=== PATIENT | male | born 1940 | race Caucasian/White ===

== ENCOUNTER 2017-09-10 12:46 | Inpatient (IN) ==
[2017-09-10] MEDS ORDERED: Morphine Sulfate Inj 8 MG/ML Vial IV.PUSH ONE (13:13)
--- NOTE | 2017-09-10 13:23 | ED ---
HPI General Chief Complaint: Extremity Injury, Lower Stated Complaint: Fall Time Seen by Provider: 09/10/17 13:03 Source: patient and family Mode of arrival: wheelchair Limitations: no limitations History of Present Illness HPI Narrative: 77-year-old male the presents to the ED for evaluation of left leg injury. Patient reports that about an hour before coming he had a fall into his left leg and he has not been able to put any weight on his left leg since. He had a previous fracture on this leg about the beginning of this year and had surgery by Dr. Brito. He is concerned he broke it again. He did suffer an abrasion to his left elbow as well as to his left knee. He states that he is up-to-date with his tetanus. Per patient his pain is 8 out of 10 especially with any movement of the left leg. All the pain appears to be around the area of the femur. Denies any numbness, drooling, weakness. No chest pain or shortness of breath. No head injury. He does take Pradaxa. He denies any other medical complaints. Patient is was a trip and fall. He denies any syncopal episode. No neck or back pain. Related Data Home Medications Medication Instructions Recorded Confirmed dabigatran etexilate [Pradaxa] mg PO DAILY 09/10/17 dofetilide [Tikosyn] mcg PO 09/10/17 insulin glargine [Lantus U-100 48 unit SUB-Q HS 09/10/17 09/10/17 Insulin] levothyroxine mcg PO DAILY 09/10/17 metformin 500 mg PO BID 09/10/17 09/10/17 Allergies Allergy/AdvReac Type Severity Reaction Status Date / Time bismuth subsalicylate Allergy Severe NAUSEA AND Verified 09/10/17 13:20 VOMITING latex Allergy Severe BURNING Verified 09/10/17 13:20 RASH PMFSH History History Provided By: Patient Medical History Medical History A-fib (Acute) Diabetes (Acute) Kidney stones (Acute) Surgical History Surgical History History of tonsillectomy (Acute) Hx of appendectomy (Acute) Hx of cholecystectomy (Acute) Social History Social History Substance History: No History of Abuse Smoking Status: Former smoker How Often Do You Have a Drink Containing Alcohol: Never Recent Travel in [facility] within the Last 8 Weeks: No Recent Out of Country Travel within the Last 8 Weeks: No Exam Narrative Exam Narrative: GENERAL: Well-appearing SKIN: Focused skin assessment warm/dry. Patient does have a hematoma to the pelvis area as well as his buttocks. HEAD: Atraumatic. Normocephalic. EYES: Pupils equal and round. No scleral icterus. No injection or drainage. ENT: No nasal bleeding or discharge. Mucous membranes pink and moist. NECK: Trachea midline. No JVD. CARDIOVASCULAR: Regular rate and rhythm. No murmur appreciated. RESPIRATORY: No accessory muscle use. Clear to auscultation. Breath sounds equal bilaterally. GASTROINTESTINAL: Abdomen soft, non-tender, nondistended. Hepatic and splenic margins not palpable. MUSCULOSKELETAL: No obvious deformities. No clubbing. No cyanosis. No edema. Full range of motion of the upper and lower extremities bilaterally with exception of the left leg. Any movement of the left leg of the area of the hip causes significant discomfort. No obvious deformity noted however. No obvious bruising noted. 2+ pulses bilaterally. Sensation intact bilaterally. NEUROLOGICAL: Awake and alert. No obvious cranial nerve deficits. Motor grossly within normal limits. Normal speech. PSYCHIATRIC: Appropriate mood and affect; insight and judgment normal. Course Initial Documented Vital Signs Temperature 97.4 F L 09/10/17 12:54 Pulse Rate 17 L 09/10/17 12:54 Respiratory Rate 17 09/10/17 12:54 Blood Pressure 95/45 L 09/10/17 12:54 Pulse Oximetry 94 L 09/10/17 12:54 Last Documented Vital Signs Temperature 97.4 F L 09/10/17 12:54 Pulse Rate 83 09/10/17 15:37 Respiratory Rate 14 09/10/17 15:37 Blood Pressure 147/71 H 09/10/17 15:37 Pulse Oximetry 97 09/10/17 15:37 Medical Decision Making BRE Attestation BRE supervised visit: Yes Attestation: I, Dr. Reyes, have reviewed the advance practice practitioner's documentation and am in agreement, met with the patient face to face, made the diagnosis, and the medical decision making was done by me. *My assessment and Findings: Patient seen and examined by me in addition to Kimo Gonzalez PA-C, 77-year-old male who is on anticoagulation for history of atrial fibrillation presents emergency department for evaluation of left hip left elbow pain after a slip and fall. Adamantly denies any shortness of breath prececal symptoms or chest pain. He states he thinks he also hit his head. No neck pain. My physical exam is fairly reassuring, he does have some tenderness with internal/external rotation of his left hip otherwise an abrasion of his left elbow which does not require any repair. Awaiting x-rays and CT of the head. MDM Narrative Medical decision making narrative: 77-year-old male the presents to the ED for evaluation of fall. Patient was properly examined and was found to have signs and symptoms consistent with appears to be fall. Concern for fracture. Imaging ordered. Meds ordered. Labs and imaging show what appears to be possible fracture. CT recommended. CT was done of the femur and did show what appears to be acetabular fracture with what appears to be hematoma pressing on the bladder. My attending Dr. Reyes himself evaluated the patient and recommends CT with contrast to see whether there is active bleeding. CT with contrast was negative for this. Patient was reassured. I spoke with Cordell WEBER for Dr. Judd who states that this is nonoperative and patient could be admitted if needed for physical therapy and rehab to medicine. At this time case was discussed with MELY Smith who agrees to admission to her service. Patient and family agree with plan. Differential Diagnosis Differential Diagnosis: Fracture versus sprain versus strain versus fall Medical Records Medical records reviewed: Yes I reviewed the patient's medical records. Lab Data Lab results reviewed: Yes I reviewed the patient's lab results. Lab results narrative: Coags slightly within normal limits Result diagrams: 09/10/17 13:30 09/10/17 13:30 Lab Results 09/10/17 09/10/17 09/10/17 Range/Units 13:30 13:30 16:25 WBC 13.6 H (4.0-11.0) th/mm3 RBC 5.55 (4.50-5.90) mil/mm3 Hgb 15.3 (13.0-17.0) gm/dL Hct 47.2 (39.0-51.0) % MCV 85.0 (80.0-100.0) fL MCH 27.5 (27.0-34.0) pg MCHC 32.3 (32.0-36.0) % RDW 15.8 (11.6-17.2) % Plt Count 266 (150-450) th/mm3 MPV 9.2 (7.0-11.0) fL Neut % (Auto) 76.5 H (16.0-70.0) % Lymph % (Auto) 17.2 (9.0-44.0) % Irion % (Auto) 4.6 (0.0-8.0) % Eos % (Auto) 1.5 (0.0-4.0) % Baso % (Auto) 0.2 (0.0-2.0) % Neut # (Auto) 10.4 H (1.8-7.7) th/mm3 Lymph # (Auto) 2.3 (1.0-4.8) th/mm3 Irion # (Auto) 0.6 (0.0-0.9) th/mm3 Eos # (Auto) 0.2 (0.0-0.4) th/mm3 Baso # (Auto) 0.0 (0.0-0.2) th/mm3 WBC Differential . Differential Comment Auto diff final PT 15.7 H (9.8-11.6) sec INR 1.6 Ratio APTT 39.4 H (24.3-30.1) sec Sodium 141 (136-145) meq/L Potassium 3.6 (3.5-5.1) meq/L Chloride 106 (98-107) meq/L Carbon Dioxide 23.0 (21.0-32.0) meq/L Anion Gap 12 (5-15) meq/L BUN 20 H (7-18) mg/dL Creatinine 1.30 (0.60-1.30) mg/dL Estimated GFR 54 L (>89) mL/min Random Glucose 209 H (74-106) mg/dL Calcium 9.0 (8.5-10.1) mg/dL Blood Type Blood Type Recheck Antibody Screen 09/10/17 Range/Units 16:25 WBC (4.0-11.0) th/mm3 RBC (4.50-5.90) mil/mm3 Hgb (13.0-17.0) gm/dL Hct (39.0-51.0) % MCV (80.0-100.0) fL MCH (27.0-34.0) pg MCHC (32.0-36.0) % RDW (11.6-17.2) % Plt Count (150-450) th/mm3 MPV (7.0-11.0) fL Neut % (Auto) (16.0-70.0) % Lymph % (Auto) (9.0-44.0) % Irion % (Auto) (0.0-8.0) % Eos % (Auto) (0.0-4.0) % Baso % (Auto) (0.0-2.0) % Neut # (Auto) (1.8-7.7) th/mm3 Lymph # (Auto) (1.0-4.8) th/mm3 Irion # (Auto) (0.0-0.9) th/mm3 Eos # (Auto) (0.0-0.4) th/mm3 Baso # (Auto) (0.0-0.2) th/mm3 WBC Differential Differential Comment PT (9.8-11.6) sec INR Ratio APTT (24.3-30.1) sec Sodium (136-145) meq/L Potassium (3.5-5.1) meq/L Chloride (98-107) meq/L Carbon Dioxide (21.0-32.0) meq/L Anion Gap (5-15) meq/L BUN (7-18) mg/dL Creatinine (0.60-1.30) mg/dL Estimated GFR (>89) mL/min Random Glucose (74-106) mg/dL Calcium (8.5-10.1) mg/dL Blood Type O Positive Blood Type Recheck Required Antibody Screen Negative Imaging Data Attestation: I personally reviewed and interpreted this imaging study as follows : Radiologist's impression: Femur X-Ray 09/10/17 00:00 CONCLUSION: 1. Medullary romario and compression screws traversing the left femoral neck all remain radiographically intact. 2. Cannot exclude an acute fracture through the previously fixated femoral neck with linear lucency medially and a questionable cortical step-off versus bony eburnation laterally. More advanced imaging may be limited due to the regional hardware but could attempt CT scan with metal artifact reducing algorithm/protocol for further evaluation if clinically warranted Pelvis X-Ray 09/10/17 13:15 CONCLUSION: No definite acute fracture. Head CT 09/10/17 13:32 CONCLUSION: 1. No acute intracranial abnormality is identified and no skull fracture is seen. 2. Suspected abnormal appearance to the skull with heterogeneous density and multiple small areas of lucency. This is a nonspecific finding but can be seen in patients with multiple myeloma. Suggest correlating with the clinical history to determine if this is a known diagnosis and if not consider additional workup. Femur CT 09/10/17 15:06 CONCLUSION: 1. Left acetabular fracture with significant amount of dissecting extraperitoneal hematoma on the left side and displacing the bladder towards the right. There is no evidence for free fluid intraperitoneally. 2. Old intertrochanteric fracture and is one area involving the inner margins near the lesser trochanter probably also related to old fracture, however an acute fracture at this site is difficult to exclude, however alignment is anatomical and surgical hardware appears intact. Pelvis CT 09/10/17 16:11 CONCLUSION: 1. Left pelvic hematoma related to acetabular fracture without active extravasation. Discharge Plan Discharge Disposition Patient Disposition: 30 Still Patient Discharge Details Diagnosis: Acetabular fracture, Hematoma Physicians Team ED Provider: Reuben Reyes ED Midlevel Provider: Kimo Gonzalez Primary Care Provider: Bakari Watson Attending Provider: Nazia Kiser Discharge Interventions Interventions: Vital Signs Last Done: 09/10/17 15:37 Status ED Status: Admitted Patient
[2017-09-10 13:49] LABS: Baso % (Auto) 0.2 % (0.0-2.0); Eos # (Auto) 0.2 th/mm3 (0.0-0.4); Eos % (Auto) 1.5 % (0.0-4.0); Hematocrit 47.2 % (39.0-51.0); Hemoglobin 15.3 gm/dL (13.0-17.0); Lymph # (Auto) 2.3 th/mm3 (1.0-4.8); Lymph % (Auto) 17.2 % (9.0-44.0); Mean Corpuscular HGB Conc 32.3 % (32.0-36.0); Mean Corpuscular Hemoglobin 27.5 pg (27.0-34.0); Mean Platelet Volume 9.2 fL (7.0-11.0); Mono # (Auto) 0.6 th/mm3 (0.0-0.9); Mono % (Auto) 4.6 % (0.0-8.0); Neut # (Auto) 10.4 th/mm3 (1.8-7.7); Neut % (Auto) 76.5 % (16.0-70.0); Platelet Count 266 th/mm3 (150-450); Red Blood Count 5.55 mil/mm3 (4.50-5.90); Red Cell Distribution Width 15.8 % (11.6-17.2); White Blood Count 13.6 th/mm3 (4.0-11.0)
[2017-09-10 14:08] LABS: Potassium 3.6 meq/L (3.5-5.1)
--- NOTE | 2017-09-10 14:48 | XR ---
EXAM DATE: 09/10/2017 2:42 PM EDT AGE/SEX: 77 years / Male INDICATIONS: Left hip pain after falling today. CLINICAL DATA: This is the patient's initial encounter. Patient reports that signs and symptoms have been present for 1 day and indicates a pain score of 10/10. MEDICAL/SURGICAL HISTORY: Diabetes mellitus type II. . Bilateral femur rods. COMPARISON: No prior exams available for comparison. FINDINGS: No definite fractures, or dislocations are identified. No definite lytic or sclerotic les ion is seen. Intramedullary rods are present traversing proximal femur with screws traversing bilater al femoral neck and there is evidence for old fractures and hypertrophic changes bilaterally. There i s moderate amount of stool in the colon. CONCLUSION: No definite acute fracture. Electronically signed by: Patti Ortiz MD 09/10/2017 2:47 PM EDT
[2017-09-10] MEDS ORDERED: Morphine Inj 4 MG/ML Vial IV.PUSH ONE (14:49)
--- NOTE | 2017-09-10 15:04 | XR ---
EXAM DATE: 09/10/2017 2:51 PM EDT AGE/SEX: 77 years / Male INDICATIONS: Left hip pain after falling today. CLINICAL DATA: This is the patient's initial encounter. Patient reports that signs and symptoms have been present for 1 day and indicates a pain score of 10/10. MEDICAL/SURGICAL HISTORY: Diabetes mellitus type II. . Bilateral femur rods. COMPARISON: [facility] [place], PELVIS AP 1V, 09/10/2017. . FINDINGS: Multiple compression screws and intramedullary romario secured a presumed femoral neck fracture. However, there is some cortical step off and lucency in the proximal femur and therefore, I cannot exclude a acute fracture post fall. Hardware all remains intact. Femoral acetabular articulation is preserved. CONCLUSION: 1. Medullary romario and compression screws traversing the left femoral neck all remain radiographically intact. 2. Cannot exclude an acute fracture through the previously fixated femoral neck with linear lucency medially and a questionable cortical step-off versus bony eburnation laterally. More advanced imaging may be limited due to the regional hardware but could attempt CT scan with metal artifact reducing a lgorithm/protocol for further evaluation if clinically warranted Electronically signed by: Robi Wakefield MD 09/10/2017 3:02 PM EDT
--- NOTE | 2017-09-10 15:43 | CT ---
EXAM DATE: 09/10/2017 3:13 PM EDT AGE/SEX: 77 years / Male INDICATIONS: Tripped and fell. CLINICAL DATA: This is the patient's initial encounter. Patient reports that signs and symptoms have been present for 1 day and indicates a pain score of 3/10. MEDICAL/SURGICAL HISTORY: Diabetes. Renal calculi. AFIB Tonsillectomy. RADIATION DOSE: 44.82 CTDI (mGy) COMPARISON: No prior exams available for comparison. TECHNIQUE: CT of the head without contrast. Using automated exposure control and adjustment of the mA and/or kV according to patient size, radiation dose was kept as low as reasonably achievable to ob tain optimal diagnostic quality images. DICOM format image data is available electronically for revi ew and comparison. FINDINGS: Cerebrum: There is mild generalized atrophy and ventricles are normal given the degree of atrophy. M ild periventricular white matter change is present. No midline shift, mass lesion, hemorrhage or acu te infarction. No extraaxial fluid collections are seen. Posterior Fossa: The cerebellum and brainstem demonstrate no acute abnormality. The 4th ventricle is midline. The cerebellopontine angle is within normal limits. Extracranial: The visualized sinuses are clear. Skull: There is a very heterogeneous appearance to the calvarium with multiple lucent areas. CONCLUSION: 1. No acute intracranial abnormality is identified and no skull fracture is seen. 2. Suspected abnormal appearance to the skull with heterogeneous density and multiple small areas of lucency. This is a nonspecific finding but can be seen in patients with multiple myeloma. Suggest co rrelating with the clinical history to determine if this is a known diagnosis and if not consider add itional workup. Electronically signed by: Andres Cheema MD 09/10/2017 3:42 PM EDT
--- NOTE | 2017-09-10 15:54 | CT ---
EXAM DATE: 09/10/2017 3:41 PM EDT AGE/SEX: 77 years / Male INDICATIONS: Fall today. CLINICAL DATA: This is the patient's initial encounter. Patient reports that signs and symptoms have been present for 1 day and indicates a pain score of 10/10. MEDICAL/SURGICAL HISTORY: None. . Bilateral femur rods. RADIATION DOSE: 25.56 CTDI (mGy) COMPARISON: No prior exams available for comparison. TECHNIQUE: Multiple contiguous axial images were acquired using a multirow detector CT scanner witho ut contrast. Multiplanar reconstruction was performed in the sagittal and coronal planes. Using auto mated exposure control and adjustment of the mA and/or kV according to patient size, radiation dose w as kept as low as reasonably achievable to obtain optimal diagnostic quality images. DICOM format im age data is available electronically for review and comparison. FINDINGS: There is a fracture of the acetabulum on the left side without any significant angulation or displace ment extends from the acetabular roof to involve the anterior column acetabulum. Intramedullary romario i s present traversing the femur with proximal and distal fixation screws and there is evidence for old intertrochanteric fracture. 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 There is hematoma in the dissecting extraperitoneally maximal AP diameter of 7.1 cm extensive to the level of the bladder and displaces the bladder towards the right side. CONCLUSION: 1. Left acetabular fracture with significant amount of dissecting extraperitoneal hematoma on the le ft side and displacing the bladder towards the right. There is no evidence for free fluid intraperito neally. 2. Old intertrochanteric fracture and is one area involving the inner margins near the lesser trocha nter probably also related to old fracture, however an acute fracture at this site is difficult to ex clude, however alignment is anatomical and surgical hardware appears intact. Electronically signed by: Patti Ortiz MD 09/10/2017 3:53 PM EDT
[2017-09-10] MEDS ORDERED: HYDROmorphone PF Inj 1 MG/ML Ampul IV.PUSH ONE (16:08)
[2017-09-10] MEDS ORDERED: HYDROmorphone PF Inj 2 MG/ML Vial ONE (16:24)
[2017-09-10 17:05] LABS: Activated Partial Thrombo Time 39.4 sec (24.3-30.1); INR 1.6 Ratio; Prothrombin Time 15.7 sec (9.8-11.6)
--- NOTE | 2017-09-10 17:30 | CT ---
EXAM DATE: 09/10/2017 5:22 PM EDT AGE/SEX: 77 years / Male INDICATIONS: Trauma, abnormal prior CT images. CLINICAL DATA: This is the patient's initial encounter. Patient reports that signs and symptoms have been present for 1 day and indicates a pain score of 10/10. MEDICAL/SURGICAL HISTORY: Cardiovascular disease. Renal calculi. . bilateral lower extremity surge ry RADIATION DOSE: 20.18 CTDI (mGy) ; Patient body habitus COMPARISON: [facility] – [place], CT FEMUR LEFT W/O CONTRAST, 09/10/2017. . TECHNIQUE: Multiple contiguous helical axial images were obtained through pelvis following bolus inf usion of 90 ml Omnipaque 350 (iohexol) nonionic water-soluble contrast as a single exam dose. Imag es were obtained using multiple row detector helical technique. . Using automated exposure control an d adjustment of the mA and/or kV according to patient size, radiation dose was kept as low as reasona louise achievable to obtain optimal diagnostic quality images. DICOM format image data is available melany ctronically for review and comparison. FINDINGS: Fractures of the left acetabulum are seen with postsurgical changes in the left hip discussed on the patient's left femur radiograph. There is a hematoma in the left pelvic wall appears to be extraperit [place] and there is no evidence for extravasation at this time. There is no evidence for free intraper itoneal fluid and there is slight mass effect on the bladder. CONCLUSION: 1. Left pelvic hematoma related to acetabular fracture without active extravasation. Electronically signed by: Patti Ortiz MD 09/10/2017 5:28 PM EDT
[2017-09-10] MEDS ORDERED: Bisacodyl 10 MG Supp RECTAL PRN (18:31)
[2017-09-10] MEDS ORDERED: Acetaminophen 325 MG Tablet PO PRN (18:31)
[2017-09-10] MEDS ORDERED: Naloxone Inj 0.4 MG/ML Vial IV.PUSH PRN (18:37)
[2017-09-10] MEDS ORDERED: Dextrose 50% in Water 50 ML Vial IV.PUSH PRN (18:50)
--- NOTE | 2017-09-10 18:53 | P.HP ---
History of Present Illness Service: [facility] Primary Care Physician: Bakari Watson MD Chief Complaint: Left Hip Pain History of Present Illness: Patient is a 77-year-old with primary medical history of atrial fibrillation on Pradaxa, diabetes, kidney stones, history of bilateral hip surgery recent [address] Brito who came into the hospital status post fall while crossing the street going to a restaurant. Patient states that he does not have any syncopal episode or dizziness prior to the fall. States he was walking with his cane and got imbalanced. Patient states that because of his recent surgery he continues to go to outpatient rehab so that he can strengthen his quads. Patient denies any loss of consciousness. Patient states he possibly hit his left side, unsure if he hit his head but he does not have any bruise or abrasion. Reports hitting left elbow, left hip, and left knee. Unable to weight-bear on the left foot. States it took a lot of morphine and finally he was given a Dilaudid that he stopped his pain a little bit. Continues to have left lower extremity soreness, 6/10, aching, tender to palpate, relieved by Dilaudid, aggravated by movement and touch. Discussed with patient, , son treatment plan and results diagnostic studies. Appreciative of the care that they have. Denies SOB/ dyspnea. Denies chest pain, palpitations, headaches, dizziness. Denies fevers, chills, n/v/d. Denies dysuria. CT Head 1. No acute intracranial abnormality is identified and no skull fracture is seen. 2. Suspected abnormal appearance to the skull with heterogeneous density and multiple small areas of lucency. This is a nonspecific finding but can be seen in patients with multiple myeloma. Suggest correlating with the clinical history to determine if this is a known diagnosis and if not consider additional workup. CT of the left femur 1. Left acetabular fracture with significant amount of dissecting extraperitoneal hematoma on the left side and displacing the bladder towards the right. There is no evidence for free fluid intraperitoneally. 2. Old intertrochanteric fracture and is one area involving the inner margins near the lesser trochanter probably also related to old fracture, however an acute fracture at this site is difficult to exclude, however alignment is anatomical and surgical hardware appears intact. CT of the pelvis 1. Left pelvic hematoma related to acetabular fracture without active extravasation. - Diagnosis (1) Acetabular fracture (2) Hematoma Inpatient Certification: I certify that the inpatient services were ordered in accordance with Medicare regulations governing the order. This includes certification that hospital inpatient services are reasonable and necessary and in the case of services not specified as inpatient-only under 42 CFR 419.22(n), that they are appropriately provided as inpatient services in accordance to with the 2-midnight benchmark under 43 CFR 412.3(e) Estimated Total Length of Stay (Days): 2 Review of Systems All other systems reviewed negative except as stated in HPI PMFSH - History History Provided By: Patient - Medical History Medical History: Medical History (Last Updated 09/10/17 @ 13:24 by Jessika Flores) A-fib Diabetes Kidney stones - Surgical History Surgical History: Surgical History (Last Updated 09/10/17 @ 13:26 by Jessika Flores) History of tonsillectomy Hx of appendectomy Hx of cholecystectomy - Tobacco History Smoking Status: Former smoker - Alcohol History How Often Do You Have a Drink Containing Alcohol: Never - Substance Use History Substance History: No History of Abuse - Travel History Recent Travel in the [place] Within the Last 8 Weeks: No Recent Travel Out of the Country Within the Last 8 Weeks: No - Immunization History Tetanus Immunization: Unsure Medications and Allergies Allergies Allergy/AdvReac Type Severity Reaction Status Date / Time bismuth subsalicylate Allergy Severe NAUSEA AND Verified 09/10/17 13:20 VOMITING latex Allergy Severe BURNING Verified 09/10/17 13:20 RASH Home Medications Medication Instructions Recorded Confirmed Type dabigatran etexilate [Pradaxa] mg PO DAILY 09/10/17 History dofetilide [Tikosyn] mcg PO 09/10/17 History insulin glargine [Lantus U-100 48 unit SUB-Q HS 09/10/17 09/10/17 History Insulin] levothyroxine mcg PO DAILY 09/10/17 History metformin 500 mg PO BID 09/10/17 09/10/17 History Exam Vital signs: Vital Signs 09/10/17 12:54 09/10/17 13:18 09/10/17 13:22 Temperature 97.4 F L Pulse Rate 17 L 106 H 89 Respiratory Rate 17 16 20 Blood Pressure 95/45 L 123/58 L 110/52 L Pulse Oximetry 94 L 93 L 93 L 09/10/17 15:37 Temperature Pulse Rate 83 Respiratory Rate 14 Blood Pressure 147/71 H Pulse Oximetry 97 Intake & Output 09/09/17 09/10/17 09/10/17 18:59 06:59 18:59 Weight 113.398 kg Narrative: GENERAL: This is a well-nourished, well-developed patient, in no apparent distress. SKIN: Warm and dry. Left elbow abrasion, left knee abrasion HEENT: Normocephalic. Pupils equal round and reactive. Nose without bleeding. Airway patent. NECK: Trachea midline. No JVD. Supple. CARDIOVASCULAR: Regular rate and rhythm without murmurs, gallops, or rubs. RESPIRATORY: Clear to auscultation. Breath sounds equal bilaterally. No wheezes , rales, or rhonchi. GASTROINTESTINAL: Abdomen soft, non-tender, nondistended. Bowel Sounds normoactive x4. MUSCULOSKELETAL: Extremities without clubbing, cyanosis. Bilateral lower extremity edema +2. Left hip hematoma present lateral side, no ecchymosis, painful to palpate. NEUROLOGICAL: Awake and alert. Oriented to time, place, person. No focal neuro deficit. Normal speech. Results - Labs CBC & Chem 7: 09/11/17 05:30 09/11/17 05:30 Labs: Laboratory Results - last 24 hr 09/10/17 09/10/17 09/10/17 13:30 13:30 16:25 WBC 13.6 H RBC 5.55 Hgb 15.3 Hct 47.2 MCV 85.0 MCH 27.5 MCHC 32.3 RDW 15.8 Plt Count 266 MPV 9.2 Neut % (Auto) 76.5 H Lymph % (Auto) 17.2 [place] % (Auto) 4.6 Eos % (Auto) 1.5 Baso % (Auto) 0.2 Neut # (Auto) 10.4 H Lymph # (Auto) 2.3 [place] # (Auto) 0.6 Eos # (Auto) 0.2 Baso # (Auto) 0.0 WBC Differential . Differential Comment Auto diff final PT 15.7 H INR 1.6 APTT 39.4 H Sodium 141 Potassium 3.6 Chloride 106 Carbon Dioxide 23.0 Anion Gap 12 BUN 20 H Creatinine 1.30 Estimated GFR 54 L Random Glucose 209 H Calcium 9.0 Blood Type Blood Type Recheck Antibody Screen 09/10/17 16:25 WBC RBC Hgb Hct MCV MCH MCHC RDW Plt Count MPV Neut % (Auto) Lymph % (Auto) [place] % (Auto) Eos % (Auto) Baso % (Auto) Neut # (Auto) Lymph # (Auto) [place] # (Auto) Eos # (Auto) Baso # (Auto) WBC Differential Differential Comment PT INR APTT Sodium Potassium Chloride Carbon Dioxide Anion Gap BUN Creatinine Estimated GFR Random Glucose Calcium Blood Type O Positive Blood Type Recheck Required Antibody Screen Negative - Imaging Impressions Femur X-Ray 09/10/17 00:00 CONCLUSION: 1. Medullary ormario and compression screws traversing the left femoral neck all remain radiographically intact. 2. Cannot exclude an acute fracture through the previously fixated femoral neck with linear lucency medially and a questionable cortical step-off versus bony eburnation laterally. More advanced imaging may be limited due to the regional hardware but could attempt CT scan with metal artifact reducing algorithm/protocol for further evaluation if clinically warranted Pelvis X-Ray 09/10/17 13:15 CONCLUSION: No definite acute fracture. Head CT 09/10/17 13:32 CONCLUSION: 1. No acute intracranial abnormality is identified and no skull fracture is seen. 2. Suspected abnormal appearance to the skull with heterogeneous density and multiple small areas of lucency. This is a nonspecific finding but can be seen in patients with multiple myeloma. Suggest correlating with the clinical history to determine if this is a known diagnosis and if not consider additional workup. Femur CT 09/10/17 15:06 CONCLUSION: 1. Left acetabular fracture with significant amount of dissecting extraperitoneal hematoma on the left side and displacing the bladder towards the right. There is no evidence for free fluid intraperitoneally. 2. Old intertrochanteric fracture and is one area involving the inner margins near the lesser trochanter probably also related to old fracture, however an acute fracture at this site is difficult to exclude, however alignment is anatomical and surgical hardware appears intact. Pelvis CT 09/10/17 16:11 CONCLUSION: 1. Left pelvic hematoma related to acetabular fracture without active extravasation. Caprini VTE Risk Assessment Caprini VTE Risk Assessment: Moderate/High Risk (score >= 2) VTE Pharmacological Exception Reason: High risk for bleeding (Left Hip Hematoma) Caprini Risk Assessment Model: Point Value = 1 Point Value = 2 Point Value = 3 Point Value = 5 Age 41-60 Minor surgery BMI > 25 kg/m2 Swollen legs Varicose veins or History of unexplained or recurrent spontaneous Oral contraceptives or hormone replacement Sepsis (< 1 month) Serious lung disease, including pneumonia (< 1 month) Abnormal pulmonary function Acute myocardial infarction Congestive heart failure (< 1 month) History of inflammatory bowel disease Medical patient at bed rest Age 61-74 Arthroscopic surgery Major open surgery (> 45 min) Laparoscopic surgery (> 45 min) Malignancy Confined to bed (> 72 hours) Immobilizing plaster cast Central venous access Age >= 75 History of VTE Family history of VTE Factor V Leiden Prothrombin [id number] Lupus anticoagulant Anticardiolipin antibodies Elevated serum homocysteine Heparin-induced thrombocytopenia Other congenital or acquired thrombophilia Stroke (< 1 month) Elective arthroplasty Hip, pelvis, or leg fracture Acute spinal cord injury (< 1 month) Prophylaxis Regimen: Total Risk Factor Score Risk Level Prophylaxis Regimen 0-1 Low Early ambulation 2 Moderate Order ONE of the following: *Sequential Compression Device (SCD) *Heparin 5000 units SQ BID 3-4 Higher Order ONE of the following medications: *Heparin 5000 units SQ TID *Enoxaparin/Lovenox 40 mg SQ daily (WT < 150 kg, CrCl > 30 mL/min) *Enoxaparin/Lovenox 30 mg SQ daily (WT < 150 kg, CrCl > 10-29 mL/min) *Enoxaparin/Lovenox 30 mg SQ BID (WT < 150 kg, CrCl > 30 mL/min) AND/OR *Sequential Compression Device (SCD) 5 or more Highest Order ONE of the following medications: *Heparin 5000 units SQ TID (Preferred with Epidurals) *Enoxaparin/Lovenox 40 mg SQ daily (WT < 150 kg, CrCl > 30 mL/min) *Enoxaparin/Lovenox 30 mg SQ daily (WT < 150 kg, CrCl > 10-29 mL/min) *Enoxaparin/Lovenox 30 mg SQ BID (WT < 150 kg, CrCl > 30 mL/min) AND *Sequential Compression Device (SCD) Assessment and Plan - Assessment (1) Acetabular fracture Code(s): S32.409A - Unspecified fracture of unspecified acetabulum, initial encounter for closed fracture Status: Acute (2) Hematoma Code(s): T14.8XXA - Other injury of unspecified body region, initial encounter Status: Acute - Plan Patient is a 77-year-old with primary medical history of atrial fibrillation on Pradaxa, diabetes, kidney stones, history of bilateral hip surgery recent [address] Brito who came into the hospital status post fall while crossing the street Status post fall Left pelvic hematoma, acute Left acetabular fracture, acute - CT Head 1. No acute intracranial abnormality is identified and no skull fracture is seen. 2. Suspected abnormal appearance to the skull with heterogeneous density and multiple small areas of lucency. This is a nonspecific finding but can be seen in patients with multiple myeloma. Suggest correlating with the clinical history to determine if this is a known diagnosis and if not consider additional workup. -CT of the left femur 1. Left acetabular fracture with significant amount of dissecting extraperitoneal hematoma on the left side and displacing the bladder towards the right. There is no evidence for free fluid intraperitoneally. 2. Old intertrochanteric fracture and is one area involving the inner margins near the lesser trochanter probably also related to old fracture, however an acute fracture at this site is difficult to exclude, however alignment is anatomical and surgical hardware appears intact. -CT of the pelvis 1. Left pelvic hematoma related to acetabular fracture without active extravasation. -Hold off on Pradaxa for now -Spoke with ED TIA Gonzalez, they have consulted Orthopedic surgeon and there is no planned surgical intervention for now. Recommends monitoring of the hematoma and PT. -Pain management IV Dilaudid, Percocet -Monitor H&H. Monitor hematoma on the left hip -Physical therapy eval and treat Atrial fibrillation, chronic -Previously on Pradaxa but due to hematoma of the left hip will hold off for now -Continue home medication Tikosyn -Monitor heart rate DM 2, basal insulin use at home -Diabetic diet, insulin sliding scale for now. Hold off metformin and Lantus -Restart basal insulin when Accu-Cheks has been established -Monitor Accu-Cheks DVT prop SCDs, chemoprophylaxis held secondary to hematoma Code Status: Full Code Discussed Condition With: Patient, family, nursing Discharge Planning: Plan to DC home when clinically improved. (1) Acetabular fracture Qualifiers: Encounter type: initial encounter Sublocation of acetabulum: unspecified portion of acetabulum Fracture type: closed Fracture alignment: nondisplaced Laterality: left Qualified Code(s): S32.402A - Unspecified fracture of left acetabulum, initial encounter for closed fracture
[2017-09-10] MEDS ORDERED: HYDROmorphone PF Inj 2 MG/ML Vial IV.PUSH PRN (19:15)
[2017-09-10] MEDS: DOFETILIDE 125 MCG PO SCH (22:06)
[2017-09-10] MEDS: Senna/Docusate Sodium 8.6/50 MG Tablet PO SCH (22:06)
[2017-09-10] MEDS: Insulin NovoLOG Aspart Correctional Sugar Inj SQ SCH (23:42)
[2017-09-11] MEDS: Temazepam 15 MG Capsule PO PRN ×2 (00:54→21:39)
[2017-09-11 06:23] LABS: Baso % (Auto) 0.4 % (0.0-2.0); Eos # (Auto) 0.3 th/mm3 (0.0-0.4); Eos % (Auto) 3.4 % (0.0-4.0); Hemoglobin 13.2 gm/dL (13.0-17.0); Lymph # (Auto) 1.2 th/mm3 (1.0-4.8); Lymph % (Auto) 15.4 % (9.0-44.0); Mean Corpuscular Hemoglobin 27.9 pg (27.0-34.0); Mean Corpuscular Volume 84.3 fL (80.0-100.0); Mean Platelet Volume 9.3 fL (7.0-11.0); Mono # (Auto) 0.7 th/mm3 (0.0-0.9); Mono % (Auto) 9.1 % (0.0-8.0); Neut # (Auto) 5.4 th/mm3 (1.8-7.7); Neut % (Auto) 71.7 % (16.0-70.0); Platelet Count 198 th/mm3 (150-450); Red Blood Count 4.74 mil/mm3 (4.50-5.90); Red Cell Distribution Width 15.5 % (11.6-17.2); White Blood Count 7.5 th/mm3 (4.0-11.0)
[2017-09-11 06:34] LABS: Albumin 2.9 g/dL (3.4-5.0); Anion Gap 8 meq/L (5-15); Aspartate Aminotransferase 15 U/L (15-37); Blood Urea Nitrogen 20 mg/dL (7-18); Calcium 8.7 mg/dL (8.5-10.1); Carbon Dioxide 27.6 meq/L (21.0-32.0); Chloride 105 meq/L (98-107); Glomerular Filtration Rate 66 mL/min (>89); Glucose,Random 165 mg/dL (74-106); Potassium 4.1 meq/L (3.5-5.1); Sodium 141 meq/L (136-145)
[2017-09-11] MEDS: Levothyroxine 50 MCG Tablet PO SCH (06:36)
[2017-09-11 06:37] LABS: Alanine Aminotransferase 15 U/L (12-78); Alkaline Phosphatase 84 U/L (45-117); Total Protein 6.4 g/dL (6.4-8.2)
[2017-09-11] MEDS: Insulin NovoLOG Aspart Correctional Sugar Inj SQ SCH ×4 (07:40→21:33)
[2017-09-11] MEDS: DOFETILIDE 125 MCG PO SCH ×2 (08:15→21:34)
[2017-09-11] MEDS: Senna/Docusate Sodium 8.6/50 MG Tablet PO SCH ×2 (08:15→21:39)
--- NOTE | 2017-09-11 09:32 | P.PNOP ---
Subjective Interval history: Previous history of bilateral proximal femur fractures. Toni was ambulating with a cane when he fell in the street. He was unable to ambulate and had significant pain. Brought the emergency room and was shown to have a left acetabular fracture. He is seen in consult by Dr. Judd Physical Exam Vital signs: Vital Signs 09/10/17 12:54 09/10/17 13:18 09/10/17 13:22 Temperature 97.4 F L Pulse Rate 17 L 106 H 89 Respiratory Rate 17 16 20 Blood Pressure 95/45 L 123/58 L 110/52 L Pulse Oximetry 94 L 93 L 93 L 09/10/17 15:37 09/10/17 19:46 09/10/17 20:21 Temperature 97.3 F L Pulse Rate 83 87 113 H Respiratory Rate 14 20 16 Blood Pressure 147/71 H 145/71 H 114/63 Pulse Oximetry 97 09/10/17 21:15 09/10/17 22:34 09/11/17 00:00 Temperature 97.9 F 97.2 F L Pulse Rate 90 90 Respiratory Rate 16 18 16 Blood Pressure 162/80 H 128/66 Pulse Oximetry 94 L 95 09/11/17 01:50 09/11/17 08:00 Temperature 97.8 F Pulse Rate 75 Respiratory Rate 18 18 Blood Pressure 121/56 L Pulse Oximetry 94 L Intake & Output 09/10/17 09/11/17 09/11/17 18:59 06:59 18:59 Intake Total 360 / 360 Output Total 625 / 625 Balance -265 / -265 Weight 113.398 kg 113.4 kg Intake: Oral 360 / 360 Output: Urine 625 / 625 Other: Date of Last Bowel Movement 09/10/17 # Bowel Movements 0 Weight On Admission 113.4 kg Narrative: Toni is a 77-year-old male is well-nourished well-developed in no acute distress Bilateral upper extremities: Full range of motion neurovascularly intact Right lower extremity: Full range of motion neurovascularly intact Left lower extremity: Pain with movement of hip. Skin is intact. Well-healed surgical incision. No pain with knee or ankle motion. Distally intact sensation with good capillary refills. Results - Labs CBC & Chem 7: 09/11/17 05:30 09/11/17 05:30 Laboratory Results - last 24 hr 09/10/17 09/10/17 09/10/17 13:30 13:30 16:25 WBC 13.6 H RBC 5.55 Hgb 15.3 Hct 47.2 MCV 85.0 MCH 27.5 MCHC 32.3 RDW 15.8 Plt Count 266 MPV 9.2 Neut % (Auto) 76.5 H Lymph % (Auto) 17.2 [place] % (Auto) 4.6 Eos % (Auto) 1.5 Baso % (Auto) 0.2 Neut # (Auto) 10.4 H Lymph # (Auto) 2.3 [place] # (Auto) 0.6 Eos # (Auto) 0.2 Baso # (Auto) 0.0 WBC Differential . Differential Comment Auto diff final PT 15.7 H INR 1.6 APTT 39.4 H Sodium 141 Potassium 3.6 Chloride 106 Carbon Dioxide 23.0 Anion Gap 12 BUN 20 H Creatinine 1.30 Estimated GFR 54 L POC Glucose Random Glucose 209 H Calcium 9.0 Total Bilirubin AST ALT Alkaline Phosphatase Total Protein Albumin Blood Type Blood Type Recheck Antibody Screen 09/10/17 09/10/17 09/11/17 16:25 22:02 05:30 WBC 7.5 RBC 4.74 Hgb 13.2 D Hct 40.0 MCV 84.3 MCH 27.9 MCHC 33.0 RDW 15.5 Plt Count 198 MPV 9.3 Neut % (Auto) 71.7 H Lymph % (Auto) 15.4 [place] % (Auto) 9.1 H Eos % (Auto) 3.4 Baso % (Auto) 0.4 Neut # (Auto) 5.4 Lymph # (Auto) 1.2 [place] # (Auto) 0.7 Eos # (Auto) 0.3 Baso # (Auto) 0.0 WBC Differential . Differential Comment Auto diff final PT INR APTT Sodium Potassium Chloride Carbon Dioxide Anion Gap BUN Creatinine Estimated GFR POC Glucose 212 H Random Glucose Calcium Total Bilirubin AST ALT Alkaline Phosphatase Total Protein Albumin Blood Type O Positive Blood Type Recheck Required Antibody Screen Negative 09/11/17 09/11/17 05:30 07:25 WBC RBC Hgb Hct MCV MCH MCHC RDW Plt Count MPV Neut % (Auto) Lymph % (Auto) [place] % (Auto) Eos % (Auto) Baso % (Auto) Neut # (Auto) Lymph # (Auto) [place] # (Auto) Eos # (Auto) Baso # (Auto) WBC Differential Differential Comment PT INR APTT Sodium 141 Potassium 4.1 Chloride 105 Carbon Dioxide 27.6 Anion Gap 8 BUN 20 H Creatinine 1.08 Estimated GFR 66 L POC Glucose 131 H Random Glucose 165 H Calcium 8.7 Total Bilirubin 0.9 AST 15 ALT 15 Alkaline Phosphatase 84 Total Protein 6.4 Albumin 2.9 L Blood Type Blood Type Recheck Antibody Screen - Imaging Impressions Femur X-Ray 09/10/17 00:00 CONCLUSION: 1. Medullary romario and compression screws traversing the left femoral neck all remain radiographically intact. 2. Cannot exclude an acute fracture through the previously fixated femoral neck with linear lucency medially and a questionable cortical step-off versus bony eburnation laterally. More advanced imaging may be limited due to the regional hardware but could attempt CT scan with metal artifact reducing algorithm/protocol for further evaluation if clinically warranted Pelvis X-Ray 09/10/17 13:15 CONCLUSION: No definite acute fracture. Head CT 09/10/17 13:32 CONCLUSION: 1. No acute intracranial abnormality is identified and no skull fracture is seen. 2. Suspected abnormal appearance to the skull with heterogeneous density and multiple small areas of lucency. This is a nonspecific finding but can be seen in patients with multiple myeloma. Suggest correlating with the clinical history to determine if this is a known diagnosis and if not consider additional workup. Femur CT 09/10/17 15:06 CONCLUSION: 1. Left acetabular fracture with significant amount of dissecting extraperitoneal hematoma on the left side and displacing the bladder towards the right. There is no evidence for free fluid intraperitoneally. 2. Old intertrochanteric fracture and is one area involving the inner margins near the lesser trochanter probably also related to old fracture, however an acute fracture at this site is difficult to exclude, however alignment is anatomical and surgical hardware appears intact. Pelvis CT 09/10/17 16:11 CONCLUSION: 1. Left pelvic hematoma related to acetabular fracture without active extravasation. Assessment and Plan - Problem List (1) Acetabular fracture Code(s): S32.409A - Unspecified fracture of unspecified acetabulum, initial encounter for closed fracture Status: Acute Qualifiers: Encounter type: initial encounter Sublocation of acetabulum: unspecified portion of acetabulum Fracture type: closed Fracture alignment: nondisplaced Laterality: left Qualified Code(s): S32.402A - Unspecified fracture of left acetabulum, initial encounter for closed fracture - Assessment and Plan Left minimally displaced acetabular fracture With the fracture lined up well and minimally displaced we will treat this conservatively. We will have physical therapy work with Toni and make him toe- touch weightbearing on the left lower extremity. They will also avoid any active leg lifts or quad sets. Physical therapy will assess home discharge versus rehab. We will re-x-ray in 2 weeks to evaluate fracture alignment with Dr. George Lee, who has been managing his 2 previous femur fractures. He understands any weightbearing could and will displace the fracture of the acetabulum.
--- NOTE | 2017-09-11 09:34 | MB ---
cc: Eriberto Judd MD DATE: 09/11/2017 REASON FOR CONSULTATION: Left acetabular fracture. HISTORY OF PRESENT ILLNESS: Toni is a 77-year-old male who has a history of atrial fibrillation, diabetes and kidney stones. He was crossing the street when he lost his balance and fell. He states that he tripped over his cane. In 02/2017, he sustained 2 separate falls resulting in right and left hip fractures treated with intramedullary nail fixation. Surgery was performed by Dr. George Lee. He had been working hard with rehabilitation. He had been improving until this fall. He denies dizziness, syncope or loss of consciousness. His only complaint is his left hip. Pain is worse with movement. X-rays and CT scan in the emergency room revealed a minimally displaced left acetabular fracture. He is currently awake and alert on the orthopedic floor. PAST MEDICAL HISTORY: Illnesses, atrial fibrillation, diabetes and kidney stones. PAST SURGICAL HISTORY: Tonsillectomy, appendectomy, cholecystectomy, bilateral hip surgery. ALLERGIES: BISMUTH AND LATEX. MEDICATIONS: 1. Pradaxa. 2. Lantus insulin. 3. Levothyroxine. 4. Metformin. SOCIAL HISTORY: The patient quit smoking. He denies alcohol or drug use. FAMILY HISTORY: Noncontributory. REVIEW OF SYSTEMS: The patient denies fevers, chills, weight loss, headache, visual changes, hearing loss, chest pain, palpitations, shortness of breath, nausea, vomiting, urinary changes, diarrhea, bowel changes, neck pain, back pain, skin rashes, weakness or numbness of extremities, anxiety or depression. He complains of left hip pain. The pain is worse with movement. LABORATORY DATA: The patient has a white blood cell count of 7.5, platelet count 198, hematocrit 40. INR 1.6. Potassium of 4.1. IMAGING: CT scan of the pelvis was reviewed. The patient has healing bilateral intertrochanteric hip fractures. He has a minimally displaced left acetabular fracture. PHYSICAL EXAMINATION: GENERAL: The patient is a pleasant 77-year-old male. He is in no acute distress. He is awake and alert. He appears well-developed and well-nourished. VITAL SIGNS: Temperature 97.8, pulse 75, respirations 18, blood pressure 121/56, O2 saturation 94% on room air. HEAD: The patient is normocephalic. EYES: Pupils are equal. NECK: Soft, nontender. The trachea is midline. ABDOMEN: Soft, nontender, nondistended. EXTREMITIES: Examination of bilateral upper extremities reveals no pain with shoulder, elbow or wrist motion. He has intact sensation in all fingers. He has good capillary refill in all fingers. Skin is intact to both hands. Radial pulses are palpable. Examination of right leg reveals no pain with hip, knee or ankle motion. Skin is intact. Dorsalis pedis pulses palpable. Sensation is intact. Examination of the left leg reveals pain with hip motion. He has well-healed incisions from previous surgery. He has no pain with knee or ankle motion. Skin is intact. Dorsalis pedis pulses palpable. Sensation is intact. IMPRESSION: 1. Atrial fibrillation. 2. Hypothyroidism. 3. Possible osteoporosis. 4. Left acetabular fracture. PLAN: Treatment options were discussed with the patient. At this point, I would recommend conservative treatment. He will need to work with physical therapy. He will need to remain toe-touch weightbearing on his left leg. I explained to him that weightbearing could cause further displacement of the fracture. Physical therapy will be consulted for gait training with a walker and use of a wheelchair. I would recommend starting calcium and vitamin D. All questions were answered. He has currently been following up with Dr. George Lee for treatment of his hip fractures. He may wish to followup with Dr. Lee for this fracture as well. A mid-level provider in my office, nurse practitioner or PA, may see this patient on a follow-up basis and continue to implement the objective of this plan including: Starting or adjusting medications, injections of muscle, tendon, bursa or joints, cast application, orthotic or brace application, physical therapy, further radiographic studies including x-ray, MRI, CT, ultrasounds or bone scan, vascular studies, neurologic studies, or other specialist consultations, and proceeding with surgical management as appropriate. MD SISSY Horn/LEATHA , 09:12 AM , 09:33 AM
--- NOTE | 2017-09-11 13:16 | P.PNIM ---
Subjective Interval history: The patient worked with physical therapy. He says that he has some pain at the site of the fracture. He wanted to know the details in regards to the fracture and the hematoma. He said that he would like to resume anticoagulation soon if he could. He wants to go home and not to rehab. Physical Exam Vital signs: Vital Signs 09/10/17 13:18 09/10/17 13:22 09/10/17 15:37 Temperature Pulse Rate 106 H 89 83 Respiratory Rate 16 20 14 Blood Pressure 123/58 L 110/52 L 147/71 H Pulse Oximetry 93 L 93 L 97 09/10/17 19:46 09/10/17 20:21 09/10/17 21:15 Temperature 97.3 F L 97.9 F Pulse Rate 87 113 H 90 Respiratory Rate 20 16 16 Blood Pressure 145/71 H 114/63 162/80 H Pulse Oximetry 94 L 09/10/17 22:34 09/11/17 00:00 09/11/17 01:50 Temperature 97.2 F L Pulse Rate 90 Respiratory Rate 18 16 18 Blood Pressure 128/66 Pulse Oximetry 95 09/11/17 08:00 09/11/17 12:24 Temperature 97.8 F 98.2 F Pulse Rate 75 80 Respiratory Rate 18 17 Blood Pressure 121/56 L 113/55 L Pulse Oximetry 94 L 94 L Intake & Output 09/10/17 09/11/17 09/11/17 18:59 06:59 18:59 Intake Total 360 / 360 Output Total 625 / 625 Balance -265 / -265 Weight 113.398 kg 113.4 kg Intake: Oral 360 / 360 Output: Urine 625 / 625 Other: Date of Last Bowel Movement 09/10/17 09/10/17 # Bowel Movements 0 Weight On Admission 113.4 kg Narrative: GENERAL: This is a well-nourished, well-developed patient, in no apparent distress. SKIN: Warm and dry. Left elbow abrasion, left knee abrasion HEENT: Normocephalic. Pupils equal round and reactive. Nose without bleeding. Airway patent. NECK: Trachea midline. No JVD. Supple. CARDIOVASCULAR: Regular rate and rhythm without murmurs, gallops, or rubs. RESPIRATORY: Clear to auscultation. Breath sounds equal bilaterally. No wheezes , rales, or rhonchi. GASTROINTESTINAL: Abdomen soft, non-tender, nondistended. Bowel Sounds normoactive x4. MUSCULOSKELETAL: Extremities without clubbing, cyanosis. Bilateral lower extremity edema noted. Left hip hematoma present on lateral side, no ecchymosis. NEUROLOGICAL: Awake and alert. Oriented to time, place, person. No focal neuro deficit. Normal speech. Results - Labs CBC & Chem 7: 09/11/17 05:30 09/11/17 05:30 Laboratory Results - last 24 hr 09/10/17 09/10/17 09/10/17 13:30 13:30 16:25 WBC 13.6 H RBC 5.55 Hgb 15.3 Hct 47.2 MCV 85.0 MCH 27.5 MCHC 32.3 RDW 15.8 Plt Count 266 MPV 9.2 Neut % (Auto) 76.5 H Lymph % (Auto) 17.2 [place] % (Auto) 4.6 Eos % (Auto) 1.5 Baso % (Auto) 0.2 Neut # (Auto) 10.4 H Lymph # (Auto) 2.3 [place] # (Auto) 0.6 Eos # (Auto) 0.2 Baso # (Auto) 0.0 WBC Differential . Differential Comment Auto diff final PT 15.7 H INR 1.6 APTT 39.4 H Sodium 141 Potassium 3.6 Chloride 106 Carbon Dioxide 23.0 Anion Gap 12 BUN 20 H Creatinine 1.30 Estimated GFR 54 L POC Glucose Random Glucose 209 H Calcium 9.0 Total Bilirubin AST ALT Alkaline Phosphatase Total Protein Albumin Blood Type Blood Type Recheck Antibody Screen 09/10/17 09/10/17 09/11/17 16:25 22:02 05:30 WBC 7.5 RBC 4.74 Hgb 13.2 D Hct 40.0 MCV 84.3 MCH 27.9 MCHC 33.0 RDW 15.5 Plt Count 198 MPV 9.3 Neut % (Auto) 71.7 H Lymph % (Auto) 15.4 [place] % (Auto) 9.1 H Eos % (Auto) 3.4 Baso % (Auto) 0.4 Neut # (Auto) 5.4 Lymph # (Auto) 1.2 [place] # (Auto) 0.7 Eos # (Auto) 0.3 Baso # (Auto) 0.0 WBC Differential . Differential Comment Auto diff final PT INR APTT Sodium Potassium Chloride Carbon Dioxide Anion Gap BUN Creatinine Estimated GFR POC Glucose 212 H Random Glucose Calcium Total Bilirubin AST ALT Alkaline Phosphatase Total Protein Albumin Blood Type O Positive Blood Type Recheck Required Antibody Screen Negative 09/11/17 09/11/17 09/11/17 05:30 07:25 11:25 WBC RBC Hgb Hct MCV MCH MCHC RDW Plt Count MPV Neut % (Auto) Lymph % (Auto) [place] % (Auto) Eos % (Auto) Baso % (Auto) Neut # (Auto) Lymph # (Auto) [place] # (Auto) Eos # (Auto) Baso # (Auto) WBC Differential Differential Comment PT INR APTT Sodium 141 Potassium 4.1 Chloride 105 Carbon Dioxide 27.6 Anion Gap 8 BUN 20 H Creatinine 1.08 Estimated GFR 66 L POC Glucose 131 H 186 H Random Glucose 165 H Calcium 8.7 Total Bilirubin 0.9 AST 15 ALT 15 Alkaline Phosphatase 84 Total Protein 6.4 Albumin 2.9 L Blood Type Blood Type Recheck Antibody Screen - Imaging Impressions Femur X-Ray 09/10/17 00:00 CONCLUSION: 1. Medullary romario and compression screws traversing the left femoral neck all remain radiographically intact. 2. Cannot exclude an acute fracture through the previously fixated femoral neck with linear lucency medially and a questionable cortical step-off versus bony eburnation laterally. More advanced imaging may be limited due to the regional hardware but could attempt CT scan with metal artifact reducing algorithm/protocol for further evaluation if clinically warranted Pelvis X-Ray 09/10/17 13:15 CONCLUSION: No definite acute fracture. Head CT 09/10/17 13:32 CONCLUSION: 1. No acute intracranial abnormality is identified and no skull fracture is seen. 2. Suspected abnormal appearance to the skull with heterogeneous density and multiple small areas of lucency. This is a nonspecific finding but can be seen in patients with multiple myeloma. Suggest correlating with the clinical history to determine if this is a known diagnosis and if not consider additional workup. Femur CT 09/10/17 15:06 CONCLUSION: 1. Left acetabular fracture with significant amount of dissecting extraperitoneal hematoma on the left side and displacing the bladder towards the right. There is no evidence for free fluid intraperitoneally. 2. Old intertrochanteric fracture and is one area involving the inner margins near the lesser trochanter probably also related to old fracture, however an acute fracture at this site is difficult to exclude, however alignment is anatomical and surgical hardware appears intact. Pelvis CT 09/10/17 16:11 CONCLUSION: 1. Left pelvic hematoma related to acetabular fracture without active extravasation. Assessment and Plan - Assessment (1) Acetabular fracture Code(s): S32.409A - Unspecified fracture of unspecified acetabulum, initial encounter for closed fracture Status: Acute (2) Hematoma Code(s): T14.8XXA - Other injury of unspecified body region, initial encounter Status: Acute - Plan Patient is a 77-year-old with primary medical history of atrial fibrillation on Pradaxa, diabetes, kidney stones, history of bilateral hip surgery who came into the hospital status post fall while crossing the street Status post fall Left pelvic hematoma, acute Left acetabular fracture, acute -CT of the left femur 1. Left acetabular fracture with significant amount of dissecting extraperitoneal hematoma on the left side and displacing the bladder towards the right. There is no evidence for free fluid intraperitoneally. 2. Old intertrochanteric fracture and is one area involving the inner margins near the lesser trochanter probably also related to old fracture, however an acute fracture at this site is difficult to exclude, however alignment is anatomical and surgical hardware appears intact. -CT of the pelvis 1. Left pelvic hematoma related to acetabular fracture without active extravasation. -Hold off on Pradaxa for now. Would resume in AM if CBC stable and hematoma stable. -Orthopedic surgery consult appreciated. Continue pain control and PT. -Pain management IV Dilaudid, Percocet as needed Abnormal head CT CT Head 1. No acute intracranial abnormality is identified and no skull fracture is seen. 2. Suspected abnormal appearance to the skull with heterogeneous density and multiple small areas of lucency. This is a nonspecific finding but can be seen in patients with multiple myeloma. Suggest correlating with the clinical history to determine if this is a known diagnosis and if not consider additional workup. - refer to hematology upon discharge. Atrial fibrillation, chronic -Previously on Pradaxa but due to hematoma of the left hip will hold off for now. Resume in AM if stable. -Continue home medication Tikosyn -Monitor heart rate DM 2, basal insulin use at home -Diabetic diet, insulin sliding scale for now. Hold off metformin and Lantus -Restart basal insulin when Accu-Cheks has been established -Monitor Accu-Cheks DVT prop SCDs, chemoprophylaxis held secondary to hematoma (1) Acetabular fracture Qualifiers: Encounter type: initial encounter Sublocation of acetabulum: unspecified portion of acetabulum Fracture type: closed Fracture alignment: nondisplaced Laterality: left Qualified Code(s): S32.402A - Unspecified fracture of left acetabulum, initial encounter for closed fracture
--- NOTE | 2017-09-11 21:15 | ECG ---
Date Performed: 09/10/2017 Time Performed: 21:41:06 PTAGE: 77 years EKG: Sinus rhythm INFERIOR MYOCARDIAL INFARCTION , PROBABLY OLD ABNORMAL ECG PREVIOUS TRACING : 08/02/2005 10.35 No significant change when compared with previous DOCTOR: Joss Ansari Interpretating Date/Time 09/11/2017 21:14:24
[2017-09-12] MEDS: Levothyroxine 50 MCG Tablet PO SCH (06:06)
--- NOTE | 2017-09-12 06:37 | P.PNOP ---
Subjective Interval history: s/p fall. s/p left acetabulum fx states pain but around with walker. reports difficulty but improving Physical Exam Vital signs: Vital Signs 09/11/17 08:00 09/11/17 12:24 09/11/17 15:15 Temperature 97.8 F 98.2 F 97.2 F L Pulse Rate 75 80 71 Respiratory Rate 18 17 16 Blood Pressure 121/56 L 113/55 L 129/60 Pulse Oximetry 94 L 94 L 96 09/11/17 17:40 09/11/17 20:00 09/12/17 00:00 Temperature 98.3 F 97.3 F L Pulse Rate 77 91 H Respiratory Rate 16 16 17 Blood Pressure 144/63 H 149/68 H Pulse Oximetry 93 L 93 L Intake & Output 09/11/17 09/11/17 09/12/17 06:59 18:59 06:59 Intake Total 360 / 360 720 / 720 Output Total 625 / 625 900 / 900 Balance -265 / -265 -180 / -180 Weight 113.4 kg Intake: Oral 360 / 360 720 / 720 Output: Urine 625 / 625 900 / 900 Other: Date of Last Bowel Movement 09/10/17 09/10/17 09/10/17 # Bowel Movements 0 Weight On Admission 113.4 kg Narrative: LLE: pain to hip with motion. nvi Results - Labs CBC & Chem 7: 09/11/17 05:30 09/11/17 05:30 Laboratory Results - last 24 hr 09/11/17 09/11/17 09/11/17 05:30 07:25 11:25 POC Glucose 131 H 186 H Total Bilirubin 0.9 ALT 15 Alkaline Phosphatase 84 Total Protein 6.4 09/11/17 09/11/17 15:16 21:12 POC Glucose 231 H 181 H Total Bilirubin ALT Alkaline Phosphatase Total Protein Assessment and Plan - Problem List (1) Acetabular fracture Code(s): S32.409A - Unspecified fracture of unspecified acetabulum, initial encounter for closed fracture Status: Acute Qualifiers: Encounter type: initial encounter Sublocation of acetabulum: unspecified portion of acetabulum Fracture type: closed Fracture alignment: nondisplaced Laterality: left Qualified Code(s): S32.402A - Unspecified fracture of left acetabulum, initial encounter for closed fracture - Assessment and Plan Left minimally displaced acetabular fracture With the fracture lined up well and minimally displaced we will treat this conservatively. We will have physical therapy work with Toni and make him toe- touch weightbearing on the left lower extremity. They will also avoid any active leg lifts or quad sets. Physical therapy will assess home discharge versus rehab. We will re-x-ray in 2 weeks to evaluate fracture alignment with Dr. Judd. He understands any weightbearing could and will displace the fracture of the acetabulum. will work with PT today to determine home vs rehab. explained that if struggling with walker, then rehab would be best option.
[2017-09-12] MEDS: Senna/Docusate Sodium 8.6/50 MG Tablet PO SCH ×3 (07:53→21:47)
[2017-09-12] MEDS: DOFETILIDE 125 MCG PO SCH ×3 (07:53→21:48)
[2017-09-12] MEDS: Insulin NovoLOG Aspart Correctional Sugar Inj SQ SCH ×4 (08:16→21:00)
[2017-09-12 10:49] LABS: Hematocrit 38.7 % (39.0-51.0); Hemoglobin 12.7 gm/dL (13.0-17.0); Mean Corpuscular Hemoglobin 27.8 pg (27.0-34.0); Mean Corpuscular Volume 84.3 fL (80.0-100.0); Mean Platelet Volume 9.3 fL (7.0-11.0); Platelet Count 167 th/mm3 (150-450); Red Blood Count 4.59 mil/mm3 (4.50-5.90); Red Cell Distribution Width 15.4 % (11.6-17.2); White Blood Count 6.9 th/mm3 (4.0-11.0)
--- NOTE | 2017-09-12 11:23 | P.PNIM ---
Subjective Interval history: The patient was wondering about his hematoma. He was hoping to start Pradaxa again soon. He said that he felt unsteady on his walker. He was wondering about getting a wheelchair. Discussed with nursing. Physical Exam Vital signs: Vital Signs 09/11/17 12:24 09/11/17 15:15 09/11/17 17:40 Temperature 98.2 F 97.2 F L Pulse Rate 80 71 Respiratory Rate 17 16 16 Blood Pressure 113/55 L 129/60 Pulse Oximetry 94 L 96 09/11/17 20:00 09/12/17 00:00 Temperature 98.3 F 97.3 F L Pulse Rate 77 91 H Respiratory Rate 16 17 Blood Pressure 144/63 H 149/68 H Pulse Oximetry 93 L 93 L Intake & Output 09/11/17 09/12/17 09/12/17 18:59 06:59 18:59 Intake Total 720 / 720 720 / 720 Output Total 900 / 900 Balance -180 / -180 720 / 720 Weight 113.5 kg Intake: Oral 720 / 720 720 / 720 Output: Urine 900 / 900 Other: # Voids 3 Date of Last Bowel Movement 09/10/17 09/10/17 09/10/17 # Bowel Movements 0 Narrative: GENERAL: This is a well-nourished, well-developed patient, in no apparent distress. SKIN: Warm and dry. Left elbow abrasion, left knee abrasion HEENT: Normocephalic. Pupils equal round and reactive. Nose without bleeding. Airway patent. NECK: Trachea midline. No JVD. Supple. CARDIOVASCULAR: Regular rate and rhythm without murmurs, gallops, or rubs. RESPIRATORY: Clear to auscultation. Breath sounds equal bilaterally. No wheezes , rales, or rhonchi. GASTROINTESTINAL: Abdomen soft, non-tender, nondistended. Bowel Sounds normoactive x4. MUSCULOSKELETAL: Extremities without clubbing, cyanosis. Bilateral lower extremity edema noted. Left hip hematoma seems to be decreasing in size. NEUROLOGICAL: Awake and alert. Oriented to time, place, person. No focal neuro deficit. Normal speech. Results - Labs CBC & Chem 7: 09/12/17 10:09 09/11/17 05:30 Laboratory Results - last 24 hr 09/11/17 09/11/17 09/11/17 11:25 15:16 21:12 WBC RBC Hgb Hct MCV MCH MCHC RDW Plt Count MPV POC Glucose 186 H 231 H 181 H 09/12/17 09/12/17 07:56 10:09 WBC 6.9 RBC 4.59 Hgb 12.7 L Hct 38.7 L MCV 84.3 MCH 27.8 MCHC 33.0 RDW 15.4 Plt Count 167 MPV 9.3 POC Glucose 191 H Assessment and Plan - Assessment (1) Acetabular fracture Code(s): S32.409A - Unspecified fracture of unspecified acetabulum, initial encounter for closed fracture Status: Acute (2) Hematoma Code(s): T14.8XXA - Other injury of unspecified body region, initial encounter Status: Acute - Plan Patient is a 77-year-old with primary medical history of atrial fibrillation on Pradaxa, diabetes, kidney stones, history of bilateral hip surgery who came into the hospital status post fall while crossing the street Status post fall Left pelvic hematoma, acute Left acetabular fracture, acute -CT of the left femur 1. Left acetabular fracture with significant amount of dissecting extraperitoneal hematoma on the left side and displacing the bladder towards the right. There is no evidence for free fluid intraperitoneally. 2. Old intertrochanteric fracture and is one area involving the inner margins near the lesser trochanter probably also related to old fracture, however an acute fracture at this site is difficult to exclude, however alignment is anatomical and surgical hardware appears intact. -CT of the pelvis 1. Left pelvic hematoma related to acetabular fracture without active extravasation. -resume Pradaxa and monitor CBC, hematoma. -Orthopedic surgery consult appreciated. Continue pain control and PT. Add OT. -Pain management IV Dilaudid, Percocet as needed Abnormal head CT CT Head 1. No acute intracranial abnormality is identified and no skull fracture is seen. 2. Suspected abnormal appearance to the skull with heterogeneous density and multiple small areas of lucency. This is a nonspecific finding but can be seen in patients with multiple myeloma. Suggest correlating with the clinical history to determine if this is a known diagnosis and if not consider additional workup. - refer to hematology upon discharge. Atrial fibrillation, chronic -Previously on Pradaxa but held due to hematoma. Will resume and monitor. -Continue home medication Tikosyn DM 2, basal insulin use at home -Diabetic diet, insulin sliding scale for now. Hold off metformin and Lantus -Add Levemir 10 units HS -Monitor Accu-Cheks DVT prop SCDs, chemoprophylaxis held secondary to hematoma (1) Acetabular fracture Qualifiers: Encounter type: initial encounter Sublocation of acetabulum: unspecified portion of acetabulum Fracture type: closed Fracture alignment: nondisplaced Laterality: left Qualified Code(s): S32.402A - Unspecified fracture of left acetabulum, initial encounter for closed fracture
[2017-09-12] MEDS ORDERED: Insulin Detemir Inj 1,000 UNIT/10 ML Vial SQ SCH (21:00)
[2017-09-13] MEDS: Temazepam 15 MG Capsule PO PRN (02:03)
[2017-09-13 05:54] LABS: Hematocrit 39.3 % (39.0-51.0); Mean Corpuscular HGB Conc 33.1 % (32.0-36.0); Mean Corpuscular Hemoglobin 28.1 pg (27.0-34.0); Mean Corpuscular Volume 84.8 fL (80.0-100.0); Mean Platelet Volume 9.8 fL (7.0-11.0); Platelet Count 189 th/mm3 (150-450); Red Blood Count 4.64 mil/mm3 (4.50-5.90); Red Cell Distribution Width 15.2 % (11.6-17.2); White Blood Count 7.2 th/mm3 (4.0-11.0)
[2017-09-13] MEDS: Levothyroxine 50 MCG Tablet PO SCH (08:03)
[2017-09-13] MEDS: Senna/Docusate Sodium 8.6/50 MG Tablet PO SCH (09:19)
[2017-09-13] MEDS: DOFETILIDE 125 MCG PO SCH (09:19)
[2017-09-13] MEDS: Insulin NovoLOG Aspart Correctional Sugar Inj SQ SCH ×2 (09:20→15:13)
--- NOTE | 2017-09-13 13:55 | P.DS ---
Date of admission: 09/10/17 18:46 Primary care physician: Bakari Watson MD Anticipated date of discharge: 09/13/17 Brief History from admission: Patient is a 77-year-old with primary medical history of atrial fibrillation on Pradaxa, diabetes, kidney stones, history of bilateral hip surgery recent [address] Brito who came into the hospital status post fall while crossing the street going to a restaurant. Patient states that he does not have any syncopal episode or dizziness prior to the fall. States he was walking with his cane and got imbalanced. Patient states that because of his recent surgery he continues to go to outpatient rehab so that he can strengthen his quads. Patient denies any loss of consciousness. Patient states he possibly hit his left side, unsure if he hit his head but he does not have any bruise or abrasion. Reports hitting left elbow, left hip, and left knee. Unable to weight-bear on the left foot. States it took a lot of morphine and finally he was given a Dilaudid that he stopped his pain a little bit. Continues to have left lower extremity soreness, 6/10, aching, tender to palpate, relieved by Dilaudid, aggravated by movement and touch. Discussed with patient, , son treatment plan and results diagnostic studies. Appreciative of the care that they have. Denies SOB/ dyspnea. Denies chest pain, palpitations, headaches, dizziness. Denies fevers, chills, n/v/d. Denies dysuria. CT Head 1. No acute intracranial abnormality is identified and no skull fracture is seen. 2. Suspected abnormal appearance to the skull with heterogeneous density and multiple small areas of lucency. This is a nonspecific finding but can be seen in patients with multiple myeloma. Suggest correlating with the clinical history to determine if this is a known diagnosis and if not consider additional workup. CT of the left femur 1. Left acetabular fracture with significant amount of dissecting extraperitoneal hematoma on the left side and displacing the bladder towards the right. There is no evidence for free fluid intraperitoneally. 2. Old intertrochanteric fracture and is one area involving the inner margins near the lesser trochanter probably also related to old fracture, however an acute fracture at this site is difficult to exclude, however alignment is anatomical and surgical hardware appears intact. CT of the pelvis 1. Left pelvic hematoma related to acetabular fracture without active extravasation. DS: Diagnosis - Discharge Diagnosis (1) Acetabular fracture Status: Acute (2) Hematoma Status: Acute DS: Medications - Discharge Medications Prescriptions: hydrocodone-acetaminophen [[place]] 1 tab PO Q4H PRN #18 tab PRN Reason: Pain temazepam 15 mg PO HS PRN #5 cap PRN Reason: Insomnia DS: Summary Hospital Course: Status post fall/Left pelvic hematoma/Left acetabular fracture, acute CT of the left femur 1. Left acetabular fracture with significant amount of dissecting extraperitoneal hematoma on the left side and displacing the bladder towards the right. There is no evidence for free fluid intraperitoneally. 2. Old intertrochanteric fracture and there is one area involving the inner margins near the lesser trochanter probably also related to old fracture, however an acute fracture at this site is difficult to exclude, however alignment is anatomical and surgical hardware appears intact. CT of the pelvis 1. Left pelvic hematoma related to acetabular fracture without active extravasation. Orthopedic surgery was consulted and recommended conservative management. The pt worked with PT and OT. We continued pain control as needed. We initially held his Pradaxa. We went over the pros and cons of resuming Pradaxa and his learning and development specialist was contacted. It was decided to continue to hold the Pradaxa until the hematoma improves. A follow-up CT scan will need to be obtained in the next few weeks to assess the hematoma. He will follow up with orthopedic surgery and his PCP. Abnormal head CT CT Head 1. No acute intracranial abnormality identified and no skull fracture is seen. 2. Suspected abnormal appearance to the skull with heterogeneous density and multiple small areas of lucency. This is a nonspecific finding but can be seen in patients with multiple myeloma. Suggest correlating with the clinical history to determine if this is a known diagnosis and if not consider additional workup. We will refer to hematology upon discharge for further evaluation. Atrial fibrillation Previously on Pradaxa but held due to hematoma as above. He was continued on Tikosyn. DM 2, basal insulin use at home He was started on a diabetic diet, insulin sliding scale. We added Levemir. He will resume metformin and Lantus upon discharge. - Time Spent with Patient Total time spent providing and/or coordinating discharge services: Greater than 30 minutes - Quality: VTE Deep Vein Thrombosis/Pulmonary Embolism Present on Admission: No Exam Vital signs: Vital Signs 09/12/17 16:00 09/12/17 16:13 09/12/17 20:00 Temperature 98 F 98.0 F Pulse Rate 85 99 H Respiratory Rate 16 17 Blood Pressure 148/66 H 133/91 H Pulse Oximetry 93 L 94 L 09/13/17 00:00 09/13/17 04:00 09/13/17 08:00 Temperature 98.1 F 98.9 F 98.1 F Pulse Rate 86 83 73 Respiratory Rate 18 Blood Pressure 124/71 138/61 138/68 Pulse Oximetry 95 94 L 96 09/13/17 12:00 Temperature 98.1 F Pulse Rate 95 H Respiratory Rate 18 Blood Pressure 139/72 Pulse Oximetry 94 L Intake & Output 09/12/17 09/13/17 09/13/17 18:59 06:59 18:59 Intake Total 690 / 690 Output Total 1300 / 1300 Balance -610 / -610 Weight 113.4 kg Intake: Oral 690 / 690 Output: Urine 1300 / 1300 Other: Date of Last Bowel Movement 09/10/17 09/10/17 09/10/17 # Bowel Movements 0 Narrative: GENERAL: This is a well-nourished, well-developed patient, in no apparent distress. SKIN: Warm and dry. Left elbow abrasion, left knee abrasion HEENT: Normocephalic. Pupils equal round and reactive. Nose without bleeding. Airway patent. NECK: Trachea midline. No JVD. Supple. CARDIOVASCULAR: Regular rate and rhythm without murmurs, gallops, or rubs. RESPIRATORY: Clear to auscultation. Breath sounds equal bilaterally. No wheezes , rales, or rhonchi. GASTROINTESTINAL: Abdomen soft, non-tender, nondistended. Bowel Sounds normoactive x4. MUSCULOSKELETAL: Extremities without clubbing, cyanosis. Bilateral lower extremity edema noted. Left hip hematoma seems to be decreasing in size. NEUROLOGICAL: Awake and alert. Oriented to time, place, person. No focal neuro deficit. Normal speech. Results Procedures completed during hospitalization: None Labs on day of discharge: Labs from last 24 hours 09/13/17 09/13/17 09/13/17 12:48 08:23 04:41 WBC 7.2 RBC 4.64 Hgb 13.0 Hct 39.3 MCV 84.8 MCH 28.1 MCHC 33.1 RDW 15.2 Plt Count 189 MPV 9.8 POC Glucose 191 H 173 H 09/12/17 09/12/17 21:44 16:12 WBC RBC Hgb Hct MCV MCH MCHC RDW Plt Count MPV POC Glucose 248 H 211 H - Impressions ITS Impressions Femur X-Ray 09/10/17 00:00 CONCLUSION: 1. Medullary romario and compression screws traversing the left femoral neck all remain radiographically intact. 2. Cannot exclude an acute fracture through the previously fixated femoral neck with linear lucency medially and a questionable cortical step-off versus bony eburnation laterally. More advanced imaging may be limited due to the regional hardware but could attempt CT scan with metal artifact reducing algorithm/protocol for further evaluation if clinically warranted Pelvis X-Ray 09/10/17 13:15 CONCLUSION: No definite acute fracture. Head CT 09/10/17 13:32 CONCLUSION: 1. No acute intracranial abnormality is identified and no skull fracture is seen. 2. Suspected abnormal appearance to the skull with heterogeneous density and multiple small areas of lucency. This is a nonspecific finding but can be seen in patients with multiple myeloma. Suggest correlating with the clinical history to determine if this is a known diagnosis and if not consider additional workup. Femur CT 09/10/17 15:06 CONCLUSION: 1. Left acetabular fracture with significant amount of dissecting extraperitoneal hematoma on the left side and displacing the bladder towards the right. There is no evidence for free fluid intraperitoneally. 2. Old intertrochanteric fracture and is one area involving the inner margins near the lesser trochanter probably also related to old fracture, however an acute fracture at this site is difficult to exclude, however alignment is anatomical and surgical hardware appears intact. Pelvis CT 09/10/17 16:11 CONCLUSION: 1. Left pelvic hematoma related to acetabular fracture without active extravasation. Discharge Plan - Discharge Disposition Patient Disposition: 03 Discharge to SNF - Discharge Condition Condition: Stable - Discharge Order Discharge Orders: Discharge Order (Routine); Ordered 09/13/17 Ordered By: Kapil Piña - Discharge Details Anticipated Discharge Date: 09/13/17 - Physicians Team Primary Care Provider: Bakari Watson Attending Provider: Kapil Piña Other Providers: Eriberto Mohamud MD
== END 2017-09-13 17:55 ==
LOC: NEPC 12:46 → INTOOBSV 18:21 → NEDA 18:21 → N06 20:48
PROVIDERS: ADMIT Hospitalist; ATTEND Hospitalist